=== PATIENT | female | born 1995 | race Hispanic/Latino ===

== ENCOUNTER 2024-01-03 11:21 | Emergency (ER) | payer SELFPAY ==
[2024-01-03] MEDS ORDERED: SODIUM CHLORIDE 0.9% 1,000 ML IV ONE (11:30)
[2024-01-03 11:32] VITALS: BP 116/77
[2024-01-03 11:45] VITALS: BP 95/50
[2024-01-03 11:47] LABS: URINE BLOOD DIPSTICK Trace-intact (NEGATIVE); URINE COLOR Yellow; URINE GLUCOSE - DIPSTICK Negative (NEGATIVE); URINE KETONE >=160 mg/dL (NEGATIVE); URINE LEUK ESTERASE Negative (NEGATIVE); URINE NITRITE - DIPSTICK Negative (Negative); URINE PROTEIN - DIPSTICK Trace mg/dL (NEG-TRACE); URINE SPECIFIC GRAVITY 1.025
[2024-01-03] MEDS ORDERED: ZOFRAN4 MG/TAB PO (11:59)
[2024-01-03] MEDS ORDERED: PRENATAL/FE PO (11:59)
[2024-01-03 12:00] VITALS: BP 93/59
[2024-01-03 12:08] VITALS: BP 93/59
== END 2024-01-03 12:15 | disposition home or self-care (01) | DRG 392 ==
LOC: ED 11:21
PROVIDERS: Family Medicine
DX: R11.0 Nausea (principal)